=== PATIENT | female | born 1965 | race Caucasian/White ===

== ENCOUNTER 2022-11-19 07:48 | Outpatient (CLI) | payer OTHER | END 2022-11-19 07:49 | disposition home or self-care (01) | LOC: BICMAMMO 07:48 | PROVIDERS: ATTEND Family Medicine | DX: N63.23 Unspecified lump in the left breast, lower outer quadrant (principal) | CPT/HCPCS: 77066; G0279 ==

== ENCOUNTER 2023-05-10 14:16 | Emergency (ER) | payer OTHER ==
[2023-05-10 14:51] LABS: #Eosinphils 0.1 thou/uL (0.0-0.7); #Monocytes 0.4 thou/uL (0.11-0.59); #Neutrophils 7.3 thou/uL (1.40-6.50); %Basophils 0.3 % (0.0-1.0); %Eosinophils 0.9 % (0.0-10.0); %Lymphocytes 13.9 % (21.0-51.0); %Monocytes 4.7 % (0.0-10.0); %Neutrophils 79.8 % (42.0-75.0); Hematocrit 35.6 % (36.0-47.0); Hemoglobin 11.6 g/dL (12.0-16.0); Mean Corpuscular HGB CONC 32.6 g/dL (32.0-36.0); Mean Platelet Volume 11.1 fL (7.4-10.4); Platelet Count 230 10x3/uL (130-400); RBC Distribution Width 13.2 % (11.5-14.5); White Blood Cell (WBC) Count 9.1 10x3/uL (4.8-10.8)
[2023-05-10 14:59] LABS: Bacteria/HPF None Seen HPF (None Seen); Bilirubin Negative (Negative); Blood, Urine Negative (Negative); CAUTI Indications for Culture Dysuria,urgency,freq; Clarity Clear (Clear); Glucose, Urine (Dipstick) Normal (Negative); Ketone, Urine Negative (Negative); Leukocyte Negative Leu/uL (Negative); Nitrite Negative (Negative); Protein, Urine (Dipstick) 20 mg/dL (Neg-Trace); RBC/HPF 0-3 HPF (0-3); Specific Gravity, Urine 1.021 (1.002-1.036); Squamous Epithelial 0-3 HPF (0-3); Urobilinogen Normal mg/dL (Less than 2); WBC/HPF 0-3 HPF (0-3); pH, Urine 6.5 (5.0-9.0)
[2023-05-10 15:01] LABS: Urine Culture Reflex No No
[2023-05-10 15:18] LABS: ALT (SGPT) 13 U/L (8-55); AST (SGOT) 18 U/L (5-34); Albumin 4.1 g/dL (3.5-5.0); Alkaline Phosphatase 88 U/L (40-110); Anion Gap 14 mmol/L (10-20); BUN (Urea Nitrogen) 19 mg/dL (9.8-20.1); Bilirubin, Total 0.2 mg/dL (0.2-1.2); Calc. Creatinine Clearance 0 mL/min (70-130); Calcium 9.1 mg/dL (7.8-10.44); Carbon Dioxide 20 mmol/L (22-29); Chloride 108 mmol/L (98-107); Estimated GFR 50; Globulin 3.5 g/dL (2.4-3.5); Glucose 94 mg/dL (70-105); Lipase 23 U/L (8-78); Potassium 4.3 mmol/L (3.5-5.1); Protein, Total 7.6 g/dL (6.0-8.3); Sodium 138 mmol/L (136-145)
[2023-05-10 15:35] LABS: Troponin I 0.013 ng/mL (< 0.028)
[2023-05-10] MEDS ORDERED: Iopamidol-370 76% 500 ML MDV (1 ML CHARGE) ONE (16:02)
[2023-05-10] MEDS ORDERED: fentaNYL 50 mcg/mL 1 mL Vial ONE (16:32)
[2023-05-10] MEDS ORDERED: Ketorolac Tromethamine 30 MG (1 mL) VIAL ONE (16:32)
[2023-05-10] MEDS ORDERED: Ondansetron PF 4 MG/2 ML Vial ONE (16:33)
== END 2023-05-10 18:10 | disposition home or self-care (01) ==
LOC: ERS 14:16
DX: M62.830 Muscle spasm of back (principal); R29.898 Other symptoms and signs involving the musculoskeletal system; I12.9 Hypertensive chronic kidney disease with stage 1 through stage 4 chronic kidney disease, or unspecified chronic kidney disease; E11.22 Type 2 diabetes mellitus with diabetic chronic kidney disease; N18.30 Chronic kidney disease, stage 3 unspecified; I25.2 Old myocardial infarction; Z79.899 Other long term (current) drug therapy
CPT/HCPCS: 74177; 80053; 81001; 83690; 83880; 84484; 85025; 93005; 96374; 96375; J1885; J2405; J3010; Q9967

== ENCOUNTER 2023-10-07 16:46 | Inpatient (IN) | payer OTHER ==
[~2023-10-07 16:46] MED LIST: Iopamidol-370 76% 500 ML MDV (1 ML CHARGE) ONE
[2023-10-07] MEDS ORDERED: Nitroglycerin 2% Ointment 1 INCH/1 GM Packet ONE (17:11)
[2023-10-07] MEDS ORDERED: Nitroglycerin 0.4 MG TAB 1 EACH ONE ×2 (17:12→18:25)
[2023-10-07 17:21] LABS: #Basophils Less than 0.03 10x3/uL (0.0-0.2); %Basophils 0.2 % (0.0-1.0); %Eosinophils 1.9 % (0.0-10.0); %Lymphocytes 20.7 % (21.0-51.0); %Neutrophils 70.4 % (42.0-75.0); Hematocrit 31.9 % (36.0-47.0); Hemoglobin 10.5 g/dL (12.0-16.0); Mean Corpuscular HGB CONC 32.9 g/dL (32.0-36.0); Mean Corpuscular Hemoglobin 29.2 pg (27.0-31.0); Mean Corpuscular Volume 88.9 fL (78.0-98.0); Mean Platelet Volume 10.8 fL (7.4-10.4); Platelet Count 223 10x3/uL (130-400); RBC Distribution Width 12.8 % (11.5-14.5); Red Blood Cell (RBC) Count 3.59 mill/uL (4.20-5.40)
[2023-10-07 17:37] LABS: ALT (SGPT) 10 U/L (8-55); AST (SGOT) 9 U/L (5-34); Albumin 3.6 g/dL (3.5-5.0); Alkaline Phosphatase 94 U/L (40-110); Anion Gap 16 mmol/L (10-20); BUN (Urea Nitrogen) 24 mg/dL (9.8-20.1); Bilirubin, Total 0.2 mg/dL (0.2-1.2); Calc. Creatinine Clearance 0 mL/min (70-130); Calcium 9.4 mg/dL (7.8-10.44); Carbon Dioxide 22 mmol/L (22-29); Chloride 106 mmol/L (98-107); Estimated GFR 50; Globulin 3.5 g/dL (2.4-3.5); Glucose 110 mg/dL (70-105); Potassium 3.9 mmol/L (3.5-5.1); Protein, Total 7.1 g/dL (6.0-8.3); Sodium 140 mmol/L (136-145)
[2023-10-07 17:42] LABS: Troponin I 0.044 ng/mL (< 0.028)
[2023-10-07] MEDS ORDERED: niCARdipine 25 MG/10 ML SDV ONE (19:27)
[2023-10-07] MEDS ORDERED: Ondansetron ODT 4 MG TAB PO PRN (19:40)
[2023-10-07] MEDS ORDERED: hydrALAZINE 20 MG/ML VIAL SLOW IVP PRN (20:22)
[2023-10-07] MEDS ORDERED: niCARdipine 25 MG in Sodium Chloride 0.9% 250 ML 250 ML IVPB SCH (20:30)
[2023-10-07 20:47] VITALS: BMI 43.7
[2023-10-07 20:50] LABS: Hemoglobin A1c 5.2 % (4.0-6.0)
[2023-10-07 21:06] LABS: Troponin I 0.041 ng/mL (< 0.028)
[2023-10-07] MEDS: Ondansetron PF 4 MG/2 ML Vial IVP PRN (21:15)
[2023-10-07] MEDS: hydrALAZINE 25 MG TAB PO SCH (21:20)
[2023-10-07] MEDS: Aspirin 325 MG TAB PO SCH (21:23)
[2023-10-07] MEDS: Morphine 2 MG/ML VIAL SLOW IVP SCH (21:25)
[2023-10-07] MEDS: Losartan 25 MG TAB PO SCH (21:53)
[2023-10-07] MEDS: NIFEdipine XL 30 MG ER.TAB PO SCH (21:53)
[2023-10-07] MEDS: traZODone HCl 150 MG TAB PO PRN (21:53)
[2023-10-07 22:52] LABS: Amphetamine Not Detected (NotDetected); Barbiturates Screen Not Detected (NotDetected); Benzodiazepine Screen Not Detected (NotDetected); Cocaine Metabolite Screen Detected (NotDetected); Methadone Not Detected (NotDetected); Methamphetamine Not Detected (NotDetected); Opiate Screen Detected (NotDetected); Oxycodone Screen Not Detected (NotDetected); Phencyclidine (PCP) Not Detected (NotDetected); THC/Cannabinoid Screen Detected (NotDetected); Tricyclic Screen Not Detected (NotDetected)
[2023-10-07 23:52] LABS: Troponin I 0.054 ng/mL (< 0.028)
[2023-10-08] MEDS: Gabapentin 300 MG CAP PO SCH (08:22)
[2023-10-08] MEDS: Aspirin 81 mg Enteric Coated Tablet PO SCH (08:22)
[2023-10-08] MEDS: DULoxetine 30 MG CAP PO SCH (08:23)
[2023-10-08] MEDS: Enoxaparin 40 MG (0.4 mL) SYRINGE SC SCH (08:23)
[2023-10-08] MEDS: Nitroglycerin 0.4 MG TAB (25 Tab Bottle) SL PRN (08:47)
[2023-10-08] MEDS: Morphine 2 MG/ML VIAL SLOW IVP PRN (08:52)
[2023-10-08 08:57] LABS: #Basophils Less than 0.03 10x3/uL (0.0-0.2); %Basophils 0.3 % (0.0-1.0); %Eosinophils 1.7 % (0.0-10.0); %Lymphocytes 15.9 % (21.0-51.0); %Monocytes 6.4 % (0.0-10.0); %Neutrophils 75.2 % (42.0-75.0); Hematocrit 32.9 % (36.0-47.0); Hemoglobin 10.6 g/dL (12.0-16.0); Mean Corpuscular HGB CONC 32.2 g/dL (32.0-36.0); Mean Corpuscular Volume 89.9 fL (78.0-98.0); Mean Platelet Volume 10.6 fL (7.4-10.4); Platelet Count 224 10x3/uL (130-400); RBC Distribution Width 12.9 % (11.5-14.5); Red Blood Cell (RBC) Count 3.66 mill/uL (4.20-5.40)
[2023-10-08 09:21] LABS: Troponin I 0.031 ng/mL (< 0.028)
[2023-10-08 09:44] LABS: ALT (SGPT) 10 U/L (8-55); AST (SGOT) 9 U/L (5-34); Albumin 3.4 g/dL (3.5-5.0); Alkaline Phosphatase 77 U/L (40-110); Anion Gap 12 mmol/L (10-20); BUN (Urea Nitrogen) 21 mg/dL (9.8-20.1); Bilirubin, Total 0.4 mg/dL (0.2-1.2); Calc. Creatinine Clearance 84 mL/min (70-130); Carbon Dioxide 24 mmol/L (22-29); Cardiac Risk 3.9 (Less than 4.5); Chloride 107 mmol/L (98-107); Cholesterol 165 mg/dl (< 200 Desired); Estimated GFR 50; Globulin 3.2 g/dL (2.4-3.5); Glucose 116 mg/dL (70-105); HDL Cholesterol 42 mg/dL (>60 Neg Risk); LDL Cholesterol, Calculated 104 mg/dL; Protein, Total 6.6 g/dL (6.0-8.3); Sodium 139 mmol/L (136-145); Triglycerides 95 mg/dL (Less than 150)
[2023-10-08] MEDS: Pantoprazole 40 MG VIAL IVP SCH (10:27)
[2023-10-08] MEDS: hydrALAZINE 25 MG TAB PO SCH ×2 (15:09→21:16)
[2023-10-09] MEDS: Losartan 25 MG TAB PO SCH (08:55)
[2023-10-09] MEDS: Pantoprazole 40 MG VIAL IVP SCH (08:56)
[2023-10-09] MEDS ORDERED: Regadenoson 0.4 MG/5 ML SYRINGE ONE (10:53)
[2023-10-09] MEDS: Atorvastatin Calcium 20 MG TAB PO SCH (13:22)
[2023-10-10] MEDS: Atorvastatin Calcium 20 MG TAB PO SCH (08:46)
[2023-10-10 12:46] VITALS: BP 164/72; TEMP 98.3
== END 2023-10-10 14:33 | disposition home or self-care (01) | DRG 305 ==
LOC: ERS 16:46 → CCU 19:23 → OBSVTOIN 20:26 → 2SW 10-08 19:37
PROVIDERS: ADMIT Family Medicine; ATTEND Family Medicine
DX: I16.0 Hypertensive urgency (principal); I20.0 Unstable angina; Z68.41 Body mass index [BMI] 40.0-44.9, adult; F14.10 Cocaine abuse, uncomplicated; I25.2 Old myocardial infarction; I12.9 Hypertensive chronic kidney disease with stage 1 through stage 4 chronic kidney disease, or unspecified chronic kidney disease; F41.9 Anxiety disorder, unspecified; J45.909 Unspecified asthma, uncomplicated; E66.9 Obesity, unspecified; E11.22 Type 2 diabetes mellitus with diabetic chronic kidney disease; N18.30 Chronic kidney disease, stage 3 unspecified; R00.1 Bradycardia, unspecified; Z88.5 Allergy status to narcotic agent; Z79.899 Other long term (current) drug therapy; Z90.49 Acquired absence of other specified parts of digestive tract; Z98.51 Tubal ligation status
CPT/HCPCS: 36415; 36416; 70450; 71045; 71275; 74174; 78452; 80053; 80061; 80306; 83036; 83880; 84439; 84443; 84484; 85025; 93005; 93010; 93017; 93306; 96374; A9502; C9113; J1650; J2272; J2405; J2785; Q9967

== ENCOUNTER 2023-10-25 20:19 | Inpatient (IN) | payer OTHER ==
[2023-10-25 20:49] LABS: #Basophils Less than 0.03 10x3/uL (0.0-0.2); %Basophils 0.2 % (0.0-1.0); %Monocytes 5.7 % (0.0-10.0); %Neutrophils 73.7 % (42.0-75.0); Hematocrit 31.5 % (36.0-47.0); Hemoglobin 10.2 g/dL (12.0-16.0); Mean Corpuscular HGB CONC 32.4 g/dL (32.0-36.0); Mean Corpuscular Volume 89.5 fL (78.0-98.0); Mean Platelet Volume 10.8 fL (7.4-10.4); Platelet Count 253 10x3/uL (130-400); Red Blood Cell (RBC) Count 3.52 mill/uL (4.20-5.40)
[2023-10-25 21:08] LABS: ALT (SGPT) 16 U/L (8-55); AST (SGOT) 11 U/L (5-34); Albumin 3.5 g/dL (3.5-5.0); Alkaline Phosphatase 100 U/L (40-110); Anion Gap 11 mmol/L (10-20); BUN (Urea Nitrogen) 26 mg/dL (9.8-20.1); Bilirubin, Total 0.2 mg/dL (0.2-1.2); Calc. Creatinine Clearance 0 mL/min (70-130); Calcium 8.7 mg/dL (7.8-10.44); Carbon Dioxide 23 mmol/L (22-29); Chloride 109 mmol/L (98-107); Estimated GFR 46; Globulin 3.4 g/dL (2.4-3.5); Glucose 118 mg/dL (70-105); Potassium 3.2 mmol/L (3.5-5.1); Protein, Total 6.9 g/dL (6.0-8.3); Sodium 140 mmol/L (136-145)
[2023-10-25 21:11] LABS: Troponin I Less than 0.010 ng/mL (< 0.028)
[2023-10-25] MEDS ORDERED: Nitroglycerin 2% Ointment 1 INCH/1 GM Packet ONE (22:05)
[2023-10-25] MEDS ORDERED: Acetaminophen 500 MG TAB ONE (22:05)
[2023-10-25] MEDS ORDERED: Nitroglycerin 0.4 MG TAB 1 EACH ONE (22:06)
[2023-10-25] MEDS ORDERED: niCARdipine 25 MG/10 ML SDV ONE (22:16)
[2023-10-25 22:42] LABS: PTT 30.3 sec (22.9-36.1); Prothrombin Time 13.7 sec (12.0-14.7)
[2023-10-25] MEDS ORDERED: Aspirin Chewable 81 MG TAB ONE (23:44)
[2023-10-26] MEDS ORDERED: niCARdipine 25 MG/10 ML SDV ONE (01:07)
[2023-10-26 01:10] LABS: Troponin I Less than 0.010 ng/mL (< 0.028)
[2023-10-26] MEDS ORDERED: hydrALAZINE 20 MG/ML VIAL SLOW IVP PRN (01:21)
[2023-10-26] MEDS ORDERED: Labetalol HCl 100 MG/20 ML VIAL SLOW IVP PRN (01:21)
[2023-10-26] MEDS ORDERED: Ondansetron PF 4 MG/2 ML Vial IVP PRN (01:31)
[2023-10-26] MEDS ORDERED: Calcium Carbonate 500 MG ChewTAB PO PRN (01:31)
[2023-10-26 02:10] VITALS: BMI 44.5
[2023-10-26 02:48] LABS: Amphetamine Not Detected (NotDetected); Barbiturates Screen Not Detected (NotDetected); Benzodiazepine Screen Not Detected (NotDetected); Cocaine Metabolite Screen Not Detected (NotDetected); Methadone Not Detected (NotDetected); Methamphetamine Not Detected (NotDetected); Opiate Screen Not Detected (NotDetected); Oxycodone Screen Not Detected (NotDetected); Phencyclidine (PCP) Not Detected (NotDetected); THC/Cannabinoid Screen Detected (NotDetected); Tricyclic Screen Not Detected (NotDetected)
[2023-10-26] MEDS: Potassium Chloride 20 MEQ TAB PO SCH (03:06)
[2023-10-26] MEDS: Gabapentin 300 MG CAP PO SCH ×2 (03:07→08:53)
[2023-10-26] MEDS: hydrALAZINE 25 MG TAB PO SCH ×2 (03:07→16:04)
[2023-10-26] MEDS: traZODone HCl 150 MG TAB PO SCH ×2 (03:07→20:40)
[2023-10-26] MEDS: niCARdipine 25 MG in Sodium Chloride 0.9% 250 ML 250 ML IVPB SCH (03:30)
[2023-10-26] MEDS: Ondansetron ODT 4 MG TAB PO PRN (03:37)
[2023-10-26 06:35] LABS: #Basophils 0.03 10x3/uL (0.0-0.2); %Basophils 0.4 % (0.0-1.0); %Eosinophils 3.3 % (0.0-10.0); %Lymphocytes 21.8 % (21.0-51.0); %Neutrophils 67.1 % (42.0-75.0); Hematocrit 30.8 % (36.0-47.0); Hemoglobin 9.9 g/dL (12.0-16.0); Mean Corpuscular HGB CONC 32.1 g/dL (32.0-36.0); Mean Corpuscular Hemoglobin 28.9 pg (27.0-31.0); Mean Corpuscular Volume 90.1 fL (78.0-98.0); Mean Platelet Volume 10.5 fL (7.4-10.4); Platelet Count 226 10x3/uL (130-400); RBC Distribution Width 13.1 % (11.5-14.5); Red Blood Cell (RBC) Count 3.42 mill/uL (4.20-5.40)
[2023-10-26 06:55] LABS: ALT (SGPT) 16 U/L (8-55); AST (SGOT) 10 U/L (5-34); Albumin 3.4 g/dL (3.5-5.0); Alkaline Phosphatase 90 U/L (40-110); Anion Gap 11 mmol/L (10-20); BUN (Urea Nitrogen) 21 mg/dL (9.8-20.1); Bilirubin, Total 0.3 mg/dL (0.2-1.2); Calc. Creatinine Clearance 94 mL/min (70-130); Calcium 8.9 mg/dL (7.8-10.44); Carbon Dioxide 24 mmol/L (22-29); Chloride 109 mmol/L (98-107); Estimated GFR 56; Glucose 101 mg/dL (70-105); Magnesium 1.7 mg/dL (1.6-2.6); Potassium 3.4 mmol/L (3.5-5.1); Protein, Total 6.4 g/dL (6.0-8.3); Sodium 141 mmol/L (136-145)
[2023-10-26] MEDS: Aspirin 81 mg Enteric Coated Tablet PO SCH (08:52)
[2023-10-26] MEDS: Pantoprazole DR 40 MG TAB PO SCH (08:53)
[2023-10-26] MEDS: Atorvastatin Calcium 20 MG TAB PO SCH (08:53)
[2023-10-26] MEDS: Hydrochlorothiazide 25 MG TAB PO SCH (08:53)
[2023-10-26] MEDS: NIFEdipine XL 60 MG ER.TAB PO SCH (08:53)
[2023-10-26] MEDS: Losartan 25 MG TAB PO SCH (08:54)
[2023-10-26] MEDS: Enoxaparin 40 MG (0.4 mL) SYRINGE SC SCH (08:54)
[2023-10-26] MEDS: DULoxetine 30 MG CAP PO SCH (08:58)
[2023-10-26] MEDS ORDERED: hydrALAZINE 25 MG TAB PO SCH (09:00)
[2023-10-26] MEDS: Magnesium 2 GM/50 ML(in water) 2 GM in Premix 1 BAG IVPB SCH (12:04)
[2023-10-26 16:19] LABS: Anion Gap 12 mmol/L (10-20); BUN (Urea Nitrogen) 20 mg/dL (9.8-20.1); Calc. Creatinine Clearance 91 mL/min (70-130); Calcium 9.1 mg/dL (7.8-10.44); Carbon Dioxide 25 mmol/L (22-29); Chloride 108 mmol/L (98-107); Estimated GFR 54; Glucose 100 mg/dL (70-105); Potassium 4.1 mmol/L (3.5-5.1); Sodium 141 mmol/L (136-145)
[2023-10-26] MEDS: Acetaminophen 325 MG TAB PO PRN (20:37)
[2023-10-27 05:39] LABS: #Basophils 0.04 10x3/uL (0.0-0.2); %Basophils 0.5 % (0.0-1.0); %Eosinophils 3.2 % (0.0-10.0); %Lymphocytes 17.3 % (21.0-51.0); %Monocytes 6.6 % (0.0-10.0); Hematocrit 31.6 % (36.0-47.0); Hemoglobin 10.2 g/dL (12.0-16.0); Mean Corpuscular HGB CONC 32.3 g/dL (32.0-36.0); Mean Corpuscular Hemoglobin 28.6 pg (27.0-31.0); Mean Corpuscular Volume 88.5 fL (78.0-98.0); Mean Platelet Volume 10.5 fL (7.4-10.4); Platelet Count 241 10x3/uL (130-400); RBC Distribution Width 12.9 % (11.5-14.5); Red Blood Cell (RBC) Count 3.57 mill/uL (4.20-5.40)
[2023-10-27 06:12] LABS: ALT (SGPT) 16 U/L (8-55); AST (SGOT) 13 U/L (5-34); Albumin 3.3 g/dL (3.5-5.0); Alkaline Phosphatase 84 U/L (40-110); Anion Gap 9 mmol/L (10-20); BUN (Urea Nitrogen) 27 mg/dL (9.8-20.1); Bilirubin, Total 0.3 mg/dL (0.2-1.2); Calc. Creatinine Clearance 85 mL/min (70-130); Calcium 9.1 mg/dL (7.8-10.44); Carbon Dioxide 27 mmol/L (22-29); Chloride 107 mmol/L (98-107); Estimated GFR 49; Globulin 3.1 g/dL (2.4-3.5); Glucose 105 mg/dL (70-105); Potassium 3.8 mmol/L (3.5-5.1); Protein, Total 6.4 g/dL (6.0-8.3); Sodium 139 mmol/L (136-145)
[2023-10-27] MEDS: Hydrochlorothiazide 25 MG TAB PO SCH (08:40)
[2023-10-27 09:37] VITALS: TEMP 98.1
[2023-10-27] MEDS ORDERED: NIFEdipine XL 60 MG ER.TAB PO SCH (10:00)
[2023-10-27] MEDS: NIFEdipine XL 90 MG ER.TAB PO SCH (11:10)
[2023-10-27] MEDS: NIFEdipine XL 30 MG ER.TAB PO SCH (13:37)
[2023-10-27 13:40] VITALS: BP 167/76
== END 2023-10-27 16:33 | disposition home or self-care (01) | DRG 305 ==
LOC: ERS 20:19 → MERGE 10-26 00:17 → CCU 10-26 00:17 → MSONC 10-26 21:28
PROVIDERS: ADMIT Student in an Organized Health Care Education/Training Program; ATTEND Student in an Organized Health Care Education/Training Program
DX: I16.0 Hypertensive urgency (principal); I12.9 Hypertensive chronic kidney disease with stage 1 through stage 4 chronic kidney disease, or unspecified chronic kidney disease; F41.9 Anxiety disorder, unspecified; I1A.0 Resistant hypertension; E87.6 Hypokalemia; D64.9 Anemia, unspecified; E86.0 Dehydration; N18.30 Chronic kidney disease, stage 3 unspecified; E78.5 Hyperlipidemia, unspecified; J45.909 Unspecified asthma, uncomplicated; Z79.82 Long term (current) use of aspirin; Z79.899 Other long term (current) drug therapy; I25.2 Old myocardial infarction; Z90.49 Acquired absence of other specified parts of digestive tract; F32.A Depression, unspecified
CPT/HCPCS: 36415; 36416; 70450; 71046; 71275; 74174; 80053; 80306; 83690; 83735; 83880; 84443; 84484; 85025; 85610; 85730; 93005; 96374; J1650; J3475; J7050; Q0162; Q9967